=== PATIENT | male | born 1995 | race African-American/Black ===

== ENCOUNTER 2017-06-27 08:34 | Emergency (ER) | payer OTHER ==
[~2017-06-27] VITALS: Ht 177.8 cm; Wt 73.0 kg
[2017-06-27 09:22] LABS: HEMATOCRIT 46.8 % (39.0-50.0); IMMATURE GRANULOCYTES 2.3 % (0.0-1.0); MEAN CORPUSCULAR HGB 30.1 pG CALC (26.0-32.0); MEAN CORPUSCULAR HGB CONC 34.2 g/L CALC (32.0-36.0); NEUT# 12.71 thou/uL (1.82-7.42); RED BLOOD COUNT 5.32 mill/uL (4.70-6.10); RED CELL DISTRI WIDTH 12.8 % (11.5-15.5)
[2017-06-27 09:46] LABS: ALBUMIN 4.8 g/dL (3.2-5.0); ALKALINE PHOSPHATASE 100 u/l (38-126); ANION GAP 27 (6-22 (CALC)); BILIRUBIN, TOTAL 2.3 mg/dL (0.0-1.4); BUN 13 mg/dL (9-20); BUN/CREATININE RATIO 10 (12-20 (CALC)); CARBON DIOXIDE 14 mmol/l (22-30); CHLORIDE 105 mmol/l (95-108); CREATININE 1.3 mg/dL (0.7-1.3); GFR > 60 ML/MIN (>=60 (CALC)); GFR FOR AFR.AMER. > 60 ML/MIN (>=60 (CALC)); LIPASE 37 u/l (23-300); SGOT/AST 34 u/l (17-59); SGPT/ALT 23 u/l (21-72); SODIUM 142 mmol/l (137-146); TOTAL PROTEIN 7.6 g/dL (6.3-8.2)
[2017-06-27 11:02] LABS: URINE BILIRUBIN - DIPSTICK NEGATIVE (NEGATIVE); URINE BLOOD DIPSTICK NEGATIVE (NEGATIVE); URINE COLOR YELLOW; URINE GLUCOSE - DIPSTICK NEGATIVE (NEGATIVE); URINE KETONE NEGATIVE (NEGATIVE); URINE LEUK ESTERASE NEGATIVE (NEGATIVE); URINE NITRITE - DIPSTICK NEGATIVE (Negative); URINE PH 5.5 (4.5-8.0); URINE PROTEIN - DIPSTICK NEGATIVE (NEG-TRACE); URINE SPECIFIC GRAVITY 1.025; URINE UROBILINOGEN - DIPSTICK 0.2 E.U./dL (0.2)
[2017-06-27 11:07] LABS: URINE CLARITY CLEAR
[2017-06-27 11:08] LABS: BARBITURATES NEGATIVE (NEGATIVE); COCAINE NEGATIVE (NEGATIVE); METHADONE NEGATIVE (NEGATIVE); OXCYCODONE NEGATIVE (NEGATIVE); TETRAHYDROCANNABIONOL NEGATIVE (NEGATIVE); TRICYLIC ANTIDEPRESSANTS NEGATIVE (NEGATIVE)
[2017-06-27] MEDS ORDERED: ZOFRAN4 M1 PO (11:17)
[2017-06-27 11:37] VITALS: BP 115/71
== END 2017-06-27 11:37 | disposition home or self-care (01) | DRG 641 ==
LOC: ED 08:34
PROVIDERS: Family Medicine
DX: E86.0 Dehydration (principal); R42 Dizziness and giddiness; R53.1 Weakness; R53.83 Other fatigue; X58.XXXA Exposure to other specified factors, initial encounter; Y93.89 Activity, other specified; Y92.89 Other specified places as the place of occurrence of the external cause; Y99.1 Military activity

== ENCOUNTER 2017-08-23 07:42 | Emergency (ER) | payer OTHER ==
[~2017-08-23] VITALS: Ht 177.8 cm; Wt 74.0 kg
[~2017-08-23 07:42] MED LIST: ZOFRAN4 M1 PO
[2017-08-23 08:37] LABS: HEMATOCRIT 44.5 % (39.0-50.0); IMMATURE GRANULOCYTES 0.6 % (0.0-1.0); MEAN CELL VOLUME 88.1 fL CALC (80.0-100.0); MEAN CORPUSCULAR HGB 29.7 pG CALC (26.0-32.0); MEAN CORPUSCULAR HGB CONC 33.7 g/L CALC (32.0-36.0); NEUT# 11.27 thou/uL (1.82-7.42); RED BLOOD COUNT 5.05 mill/uL (4.70-6.10); RED CELL DISTRI WIDTH 12.7 % (11.5-15.5)
[2017-08-23 09:16] VITALS: BP 125/64
== END 2017-08-23 09:25 | disposition home or self-care (01) | DRG 204 ==
LOC: ED 07:42
PROVIDERS: Family Medicine
DX: R04.2 Hemoptysis (principal)